=== PATIENT | female | born 1935 | race Caucasian/White ===

== ENCOUNTER → 2019-07-20 | Emergency (ER) | payer OTHER ==
[~2019-07-20] VITALS: Ht 160 cm; Wt 54.4 kg
[~2019-07-20] MED LIST: CALCIUM CHLORIDE 1 GM in NS 100 ML IV ONE; CEPHALEXIN 500 MG CAPSULE PO ONE; cefTRIAXone 1 GM in LIDOCAINE 1%, 20 ML MDV 2.1 ML IM ONE
[2019-07-20 20:25] VITALS: BP_SYST 118
--- NOTE | 2019-07-20 20:33 | NUR ---
Patient triaged in [facility] [address] and placed in [address] w/ ambulance gurney. VSS and patient appears in no acute distress at this time. Accompanied by ems , awaiting available bed, and MD notified of need for MSE. Report given to Raúl US
--- NOTE | 2019-07-20 20:35 | NUR ---
ER at bedside examining patient.
--- NOTE | 2019-07-20 20:35 | NUR ---
Pt brought in by ambulance. Pt sent to [facility] for medical clearance prior to admission to [facility]. Pt awake, alert, mildly confused. pt shows no acute distress at this time. Pt denies pain at this time, displays no guarding or other distress. Pt has no nausea, vomiting, chest pain, sob, dizziness, any other medical complaint at this time. Pt resting on [place], vss.
[2019-07-20 21:27] LABS: BASOPHILS % (AUTO) 0.7 % (0.0-2.0); EOSINOPHILS % (AUTO) 1.2 % (0.0-4.0); HEMATOCRIT 30.2 % (36-48); HEMOGLOBIN 9.7 g/dL (12.0-16.0); LYMPHOCYTES # (AUTO) 0.4 K/uL (1.0-5.5); LYMPHOCYTES % (AUTO) 9.1 % (20.5-51.5); MEAN CORPUSCULAR HEMOGLOBIN 27 pg (27-31); MEAN CORPUSCULAR HGB CONC 32 % (32-36); MEAN CORPUSCULAR VOLUME 84 fL (79.0-98.0); MONOCYTES # (AUTO) 0.3 K/uL (0.0-1.0); MONOCYTES % (AUTO) 8.2 % (1.7-9.3); NEUTROPHILS # (AUTO) 3.3 K/uL (1.8-7.7); NEUTROPHILS % (AUTO) 80.8 % (40.0-70.0); RED CELL DISTRIBUTION WIDTH 21.2 % (9.0-15.0); WHITE BLOOD COUNT (AUTO) 4.1 K/uL (4.8-10.8)
[2019-07-20 21:42] LABS: PLATELET COUNT (AUTO) 150 K/uL (130-430)
[2019-07-20 21:49] LABS: ANION GAP 4 (5-15); CALCIUM 7.6 mg/dL (8.4-11.0); CHLORIDE 107 mmol/L (98-107); CREATININE 0.81 mg/dL (0.55-1.30); GLUCOSE 162 mg/dL (70-99); POTASSIUM 4.5 mmol/L (3.5-5.1); SODIUM SERUM 141 mmol/L (136-145); UREA NITROGEN, BLOOD 27 mg/dL (8-21)
[2019-07-20 22:03] LABS: ACETAMINOPHEN < 1 ug/mL (1-30); ALANINE AMINOTRANSFERASE 17 U/L (12-78); ALBUMIN 2.6 g/dL (3.4-4.8); ALCOHOL, BLOOD < 3 mg/dL (<10); ASPARTATE AMINOTRANSFERASE 18 U/L (10-37); TOTAL BILIRUBIN 0.3 mg/dL (0.0-1.0)
[2019-07-20 22:05] LABS: TRIGLYCERIDES 130 mg/dL (30-150)
[2019-07-20 22:06] LABS: CHOLESTEROL 164 mg/dL (<200); HDL CHOLESTEROL 52 mg/dL (>55); LDL CHOLESTEROL 80 mg/dL (<100)
[2019-07-20 22:35] LABS: BILIRUBIN,URINE NEGATIVE (NEGATIVE); BLOOD, URINE NEGATIVE (NEGATIVE); CLARITY/URINE CLEAR (CLEAR); COLOR,URINE YELLOW (YELLOW); GLUCOSE,URINE NEGATIVE (NEGATIVE); KETONES,URINE NEGATIVE (NEGATIVE); LEUKOCYTE ESTERASE ,URINE TRACE (NEGATIVE); NITRITE, URINE NEGATIVE (NEGATIVE); PH,URINE 6.5 (5.0-8.0); PROTEIN URINE TRACE (NEGATIVE); UROBILINOGEN,URINE 0.2 (0.2-1.0)
--- NOTE | 2019-07-20 22:36 | NUR ---
Pt moved to ER bed 8.
[2019-07-20 22:49] LABS: BACTERIA,URINE FEW /HPF (None Seen); MUCUS,URINE None Seen /LPF (None Seen); RBC,URINE NONE SEEN /HPF (0-3)
[2019-07-20 22:50] LABS: BARBITURATE, URINE NEGATIVE (NEG <=200); BENZODIAZEPINE, URINE POSITIVE (NEG <=150); METHAMPHETAMINES SCREEN,URINE NEGATIVE (NEG <=500); URINE AMPHETAMINE NEGATIVE (NEG <=500); URINE METHADONE NEGATIVE (NEG <=200)
[2019-07-20 22:51] LABS: CANNABINOID, URINE NEGATIVE (NEG <=50); COCAINE, URINE NEGATIVE (NEG <=150); OPIATE, URINE POSITIVE (NEG <=100); PHENCYCLIDINE SCREEN,URINE NEGATIVE (NEG <=25); UR TRICYCLIC ANTIDEPRESSANTS NEGATIVE (NEG <=300); URINE OXYCODONE SCREEN NEGATIVE (NEG <=100); URINE PROPOXYPHENE SCREEN NEGATIVE (NEG <=300)
--- NOTE | 2019-07-21 | NUR ---
Pt resting in ed bed, no acute distress. Pt states that she has no pain, would like to be kept updated on lab values.
--- NOTE | 2019-07-21 01:37 | NUR ---
Pt requested additional blanket. Pt resting comfortably. No distress.
--- NOTE | 2019-07-21 02:17 | NUR ---
Pt tolerating medication and IV well. No new complaints.
--- NOTE | 2019-07-21 04:05 | NUR ---
Pt resting in ed bed. No complaints.
--- NOTE | 2019-07-21 05:15 | NUR ---
pt assisted to ambulate to restroom
--- NOTE | 2019-07-21 06:29 | NUR ---
Pt informed of new labs, provided with oral antibiotics. Pt states she is ready to go when her "ride" gets here. No distress, no new complaints.
--- NOTE | 2019-07-21 08:30 | NUR ---
Patient given written and verbal discharge instructions and verbalizes understanding. PT TRANSFERRED TO [facility]. ER discussed with patient the results and treatment provided. Patient in stable condition. ID arm band removed. Patient educated on pain management and to follow up with PMD. Pain Scale0/10 . Opportunity for questions provided and answered. Medication side effect fact sheet provided.
[2019-07-21 15:03] VITALS: BP_SYST 132
== END | disposition still patient (30) ==
LOC: SED 20:22
DX: E83.51 Hypocalcemia (principal); N39.0 Urinary tract infection, site not specified; G30.9 Alzheimer's disease, unspecified; Z88.6 Allergy status to analgesic agent; Z85.118 Personal history of other malignant neoplasm of bronchus and lung
CPT/HCPCS: 36415; 80053; 80061; 80307; 81000; 82310; 83036; 85025; 87081; 96365; 99285; G0480; G0481; G0482

== ENCOUNTER 2019-08-04 14:03 | Emergency (ER) | payer OTHER ==
[~2019-08-04] VITALS: Ht 157.5 cm; Wt 59.0 kg
[2019-08-04 14:03] VITALS: BP_SYST 116
[2019-08-04 15:09] LABS: BLOOD, URINE 1+ (NEGATIVE); CLARITY/URINE SL CLOUDY (CLEAR); COLOR,URINE YELLOW (YELLOW); GLUCOSE,URINE NEGATIVE (NEGATIVE); KETONES,URINE 1+ (NEGATIVE); NITRITE, URINE NEGATIVE (NEGATIVE); PH,URINE 6.5 (5.0-8.0); PROTEIN URINE 1+ (NEGATIVE)
[2019-08-04 15:20] LABS: BARBITURATE, URINE NEGATIVE (NEG <=200); BENZODIAZEPINE, URINE NEGATIVE (NEG <=150); CANNABINOID, URINE NEGATIVE (NEG <=50); COCAINE, URINE NEGATIVE (NEG <=150); METHAMPHETAMINES SCREEN,URINE NEGATIVE (NEG <=500); OPIATE, URINE NEGATIVE (NEG <=100); PHENCYCLIDINE SCREEN,URINE NEGATIVE (NEG <=25); UR TRICYCLIC ANTIDEPRESSANTS NEGATIVE (NEG <=300); URINE AMPHETAMINE NEGATIVE (NEG <=500); URINE METHADONE NEGATIVE (NEG <=200); URINE OXYCODONE SCREEN NEGATIVE (NEG <=100); URINE PROPOXYPHENE SCREEN NEGATIVE (NEG <=300)
[2019-08-04 15:26] LABS: BASOPHILS % (AUTO) 0.5 % (0.0-2.0); EOSINOPHILS % (AUTO) 0.4 % (0.0-4.0); HEMATOCRIT 32.9 % (36-48); HEMOGLOBIN 10.7 g/dL (12.0-16.0); LYMPHOCYTES # (AUTO) 0.3 K/uL (1.0-5.5); LYMPHOCYTES % (AUTO) 6.8 % (20.5-51.5); MEAN CORPUSCULAR HEMOGLOBIN 28 pg (27-31); MEAN CORPUSCULAR HGB CONC 32 % (32-36); MEAN CORPUSCULAR VOLUME 87 fL (79.0-98.0); MONOCYTES # (AUTO) 0.6 K/uL (0.0-1.0); MONOCYTES % (AUTO) 14.1 % (1.7-9.3); NEUTROPHILS # (AUTO) 3.4 K/uL (1.8-7.7); NEUTROPHILS % (AUTO) 78.2 % (40.0-70.0); PLATELET COUNT (AUTO) 106 K/uL (130-430); RED BLOOD CELL COUNT(AUTO) 3.78 MIL/uL (4.2-6.2); RED CELL DISTRIBUTION WIDTH 21.9 % (9.0-15.0); WHITE BLOOD COUNT (AUTO) 4.3 K/uL (4.8-10.8)
[2019-08-04 15:30] LABS: BILIRUBIN,URINE NEGATIVE (NEGATIVE)
[2019-08-04 15:30] LABS: ANION GAP 6 (5-15); CALCIUM 7.8 mg/dL (8.4-11.0); CHLORIDE 104 mmol/L (98-107); CREATININE 0.85 mg/dL (0.55-1.30); GLUCOSE 156 mg/dL (70-99); POTASSIUM 4.9 mmol/L (3.5-5.1); SODIUM SERUM 135 mmol/L (136-145); UREA NITROGEN, BLOOD 20 mg/dL (8-21)
[2019-08-04 15:31] LABS: LEUKOCYTE ESTERASE ,URINE 1+ (NEGATIVE)
[2019-08-04 15:32] LABS: BACTERIA,URINE MODERATE /HPF (None Seen); MUCUS,URINE None Seen /LPF (None Seen)
[2019-08-04 15:35] LABS: ALANINE AMINOTRANSFERASE 17 U/L (12-78); ALBUMIN 2.6 g/dL (3.4-4.8); ASPARTATE AMINOTRANSFERASE 18 U/L (10-37); CHOLESTEROL 172 mg/dL (<200); HDL CHOLESTEROL 37 mg/dL (>55); LDL CHOLESTEROL 86 mg/dL (<100); TOTAL BILIRUBIN 0.5 mg/dL (0.0-1.0); TRIGLYCERIDES 180 mg/dL (30-150)
[2019-08-04 15:38] LABS: ALCOHOL, BLOOD < 3 mg/dL (<10)
[2019-08-04 15:41] LABS: ACETAMINOPHEN < 1 ug/mL (1-30)
[2019-08-04 16:23] VITALS: BP_SYST 121
== END 2019-08-04 16:23 | disposition home or self-care (01) ==
LOC: SED 14:03
DX: R41.82 Altered mental status, unspecified (principal); G30.9 Alzheimer's disease, unspecified; F02.80 Dementia in other diseases classified elsewhere, unspecified severity, without behavioral disturbance, psychotic disturbance, mood disturbance, and anxiety; Z87.440 Personal history of urinary (tract) infections; Z88.6 Allergy status to analgesic agent; Z85.118 Personal history of other malignant neoplasm of bronchus and lung
CPT/HCPCS: 36415; 71045; 80053; 80061; 80307; 81000; 81025; 83036; 85025; 87086; 93005; 99285; G0480; G0481; G0482